=== PATIENT | female | born 1970 | race Caucasian/White ===

== ENCOUNTER → 2021-03-25 14:37 | Outpatient (BNVA) | payer MEDICARE, MEDICAID, SELFPAY | PROVIDERS: Visit Provider Nurse Practitioner Family | DX: Z20.822 Contact with and (suspected) exposure to COVID-19 (principal); J06.9 Acute upper respiratory infection, unspecified | CPT/HCPCS: 87635 ==

== ENCOUNTER 2021-03-27 08:47 | Emergency (ER) | payer MEDICARE, SELFPAY ==
--- NOTE | 2021-03-27 08:51 | W.ED.COVID ---
HPI - COVID General: Chief Complaint: COVID symptoms Stated Complaint: COVID symptoms Time Seen by Provider: 03/27/21 08:49 History of Present Illness: HPI Narrative: 50-year-old female who was tested 2 days ago for Covid. PCR as listed in chart is still pending patient returns complaining of increasing symptoms. Consulted lab they did have the fax copy of her positive test it is just not been transferred to the EMR yet. Patient had diarrhea initially that is resolved still having a low-grade fever nonproductive cough patient is diabetic. MD complaint: known COVID positive Prior covid testing: yes, results known Prior testing date: 03/25/21 COVID 19 common symptoms: positive fever(s), chills, cough, non-productive cough, dyspnea, fatigue, body aches, headache(s), throat pain, nasal congestion, nausea, vomiting and diarrhea COVID 19 other sytmptoms: negative chest pain or requiring oxygen Onset (ago): day(s) (4) Severity: mild Pertinent comorbid conditions: diabetes and obesity Treatment prior to arrival: none COVID Results: SARS-CoV-2 RNA (RT-PCR) Detected (NOT DETECTED) A 03/25/21 14:37 03/25/21 Review of Systems Const: Reports: fever(s), chills, body aches and fatigue ENMT: Reports: throat pain and nasal congestion Card: Denies: chest pain, edema, dyspnea on exertion or orthopnea Resp: Reports: dyspnea and non-productive cough GI: Reports: nausea, vomiting and diarrhea : Denies: flank pain, difficulty voiding, dysuria, urinary frequency or urinary urgency Skin/Breast: Denies: rash or pruritus Neuro: Reports: headache(s) PFSH ED PFSH: Medical History (Updated 03/27/21 @ 10:26 by Amarjit Lee DO) Diabetes mellitus Hypertension Obesity Physical Exam Const: COMMON NORMALS: no acute distress GENERAL APPEARANCE: cooperative and comfortable ORIENTATION/CONSCIOUSNESS: Yes awake, Yes oriented to person, Yes oriented to place and Yes oriented to time HENMT: COMMON NORMALS: normocephalic, atraumatic and hearing grossly normal bilaterally HEAD & SCALP: normocephalic and atraumatic Neck/C-Spine: COMMON NORMALS: no JVD Resp: COMMON NORMALS: normal respiratory effort, No retractions, No use of accessory muscles and clear to auscultation bilaterally AUSCULTATION: clear to auscultation bilaterally Cardio: COMMON NORMALS: no JVD, regular rate, regular rhythm and No murmurs present (Cardio) RATE: regular rate RHYTHM: regular rhythm GI: COMMON NORMALS: Soft to palpation and No hepatosplenomegaly present AUSCULTATION: Yes normoactive bowel sounds PALPATION: Yes Soft to palpation, No Tenderness to palpation present (GI), No Guarding due to palpation present (GI) and Yes No hepatosplenomegaly present Extremity: COMMON NORMALS: normal to inspection, capillary refill normal, no clubbing, cyanosis or edema, no calf tenderness and no pedal edema Neuro: SENSORIUM/ORIENTATION: Yes oriented to person, Yes oriented to place and Yes oriented to time Skin: COMMON NORMALS: no rashes or lesions noted GENERAL SKIN EXAM: no rashes or lesions noted Course Vital Signs: Vital signs: Vital Signs Temperature 100.0 F H 03/27/21 08:57 Pulse Rate 97 03/27/21 10:59 Respiratory Rate 17 03/27/21 10:59 Blood Pressure 168/99 03/27/21 10:59 Pulse Oximetry 96 03/27/21 10:59 MDM - COVID MDM Narrative: Medical decision making narrative: Patient stable at this time we will set her up for home O2 and home oxygen saturation monitoring. In discussing with her management of her diabetes I think it would become counterproductive to put her on dexamethasone at this point with her diabetes. We will discharge her home and with oxygen. As well as an oxygen sat monitor. Unfortunately due to her oxygen requirement she will not be a candidate for monoclonal antibodies that we had first hoped. COVID Results: SARS-CoV-2 RNA (RT-PCR) Detected (NOT DETECTED) A 03/25/21 14:37 03/25/21 Monoclonal Antibody Treatments Inclusion/Exclusion Criteria weight >/= 40 kg BMI >/= 35 and has diabetes Plan for treatment Does not meet criteria (DO NOT GIVE) Other information Initially we had hoped to treat with monoclonal antibodies however home oxygen test showed that the patient requires oxygen and is no longer a candidate based on this. Discharge Plan Discharge Patient Disposition: Home Clinical Impression: COVID-19, Diabetes mellitus, Obesity Condition: Stable Prescriptions: New Zofran 4 mg tablet 4 mg PO Q6H PRN (Reason: nausea and vomiting) Qty: 20 RF: 0 Discharge Orders: Discharge ED (Routine); Ordered 03/27/21 Ordered By: Amarjit Lee Other Ambulatory Orders: DME: Oxygen (Order) Location: None Selected Ordered By: Amarjit Lee Patient Instructions: Opioid Safety Coding Level of Care Code ED Front Office Coordinator for Chg Fwd Exam Comprehensive
[2021-03-27 08:57] VITALS: BP 154/100; PULSE 98; RESP 18; TEMP 37.8; O2SAT 90; BMI 40.2
[2021-03-27 09:02] VITALS: BP 138/93; PULSE 95; RESP 17; O2SAT 91
--- NOTE | 2021-03-27 09:15 | XR_ITS ---
WS: [id number] Portable AP upright chest, 03/27/2021 Clinical Data: dyspnea/cough/covid Comparison: PA and lateral chest, 12/01/2017. Findings: No nodules, masses or effusions are seen. The heart is normal. The pulmonary vascularity is not increased. No pneumothorax is seen. Minimal bilateral peripheral lower lobe opacities are seen. This could represent mild pneumonia. XR/XR chest 1V portable [id number] Impression: Minimal bilateral peripheral lower lobe opacities which may be pneumonia.
[2021-03-27 10:07] VITALS: O2SAT 87; O2SAT 91; O2SAT 95
--- NOTE | 2021-03-27 10:36 | DCPLANNER ---
building rental manager was asked to arrange home O2 for patient. building rental manager spoke with patient, she stated that she would like to use [facility]. building rental manager faxed patients information to [facility]. Patient choice sheet was filled out.
[2021-03-27] MEDS: ondansetron 2 mg/ML SDV 2 mL 4 MG IM (10:56)
[2021-03-27 10:59] VITALS: BP 168/99; PULSE 97; RESP 17; O2SAT 96
--- NOTE | 2021-03-28 08:59 | DCPLANNER ---
Addendum entered by Princess Garcia 03/31/21 09:16: Patients son returned piano case and bench assembler phone call, disease case manager offered to help patient get established with a primary care physician. Patients son stated that once patient is feeling better that patient will be returning home. Original Note: manager of disaster recovery had message to schedule a follow up appointment for patient with telehealth. manager of disaster recovery called phone number [phone], unable to speak with patient at this time, a voicemail was left for patient to return piano case and bench assembler phone call.
== END 2021-03-27 12:42 | disposition home or self-care (01) ==
PROVIDERS: Emergency Provider Family Medicine
DX: U07.1 COVID-19 (principal); E11.9 Type 2 diabetes mellitus without complications; E66.9 Obesity, unspecified; I10 Essential (primary) hypertension
CPT/HCPCS: 71045; 96372; 96374; 99283; J2405

== ENCOUNTER → 2021-12-02 10:03 | Outpatient (BNVA) | payer MEDICARE, SELFPAY | PROVIDERS: Visit Provider Nurse Practitioner | DX: S82.892A Other fracture of left lower leg, initial encounter for closed fracture (principal); W10.9XXA Fall (on) (from) unspecified stairs and steps, initial encounter | CPT/HCPCS: 73610 ==